=== PATIENT | female | born 1975 | race Caucasian/White ===

== ENCOUNTER 2021-07-03 06:10 | Day surgery (SDC) | payer OTHER ==
[~2021-07-03 06:10] MED LIST: BENADRYL50 MG PO; PREDNISONE5 MG/DOSE- PO
== END 2021-07-03 12:15 | disposition home or self-care (01) ==
LOC: AMB-ENDOS 06:10
PROVIDERS: ATTEND Surgery
DX: K62.5 Hemorrhage of anus and rectum (principal); K64.8 Other hemorrhoids; Z20.822 Contact with and (suspected) exposure to COVID-19